=== PATIENT | male | born 2000 | race Caucasian/White ===

== ENCOUNTER 2020-10-27 19:07 | Emergency (ER) | payer OTHER ==
[~2020-10-27] VITALS: Ht 175.3 cm; Wt 69.0 kg
[2020-10-27 19:08] VITALS: BP 134/88
--- NOTE | 2020-10-27 19:56 | REP ---
INDICATION: fall. COMPARISON: None. TECHNIQUE: Three views of the shoulder were performed. FINDINGS: The acromioclavicular and glenohumeral relationships are within normal limits. There is no acute fracture or destructive osseous lesion. IMPRESSION: Negative <Electronically signed by Rafal Abel > 10/27/201951
[2020-10-27] MEDS ORDERED: IBUP-1022 PO (20:03)
== END 2020-10-27 20:27 | disposition home or self-care (01) ==
LOC: M ED 19:07
DX: S40.012A Contusion of left shoulder, initial encounter (principal); V00.311A Fall from snowboard, initial encounter; Y92.830 Public park as the place of occurrence of the external cause